=== PATIENT | female | born 1990 | race Caucasian/White ===

== ENCOUNTER → 2017-01-07 | Outpatient (REF) | payer OTHER | LOC: M LAB REF 13:38 | PROVIDERS: ATTEND Advanced Practice Midwife | DX: Z34.82 Encounter for supervision of other normal pregnancy, second trimester (principal); Z3A.23 23 weeks gestation of pregnancy ==

== ENCOUNTER → 2017-04-10 | Outpatient (REF) | payer OTHER | LOC: M LAB REF 12:56 | DX: Z34.83 Encounter for supervision of other normal pregnancy, third trimester (principal); Z3A.36 36 weeks gestation of pregnancy | CPT/HCPCS: 87081 ==

== ENCOUNTER 2017-04-24 00:42 | Inpatient (IN) | payer OTHER ==
[2017-04-24] MEDS: PENICILLIN G POTASSIUM IV 5 MU in D5W MINI-BAG PLUS 100 ML IV (01:57)
[2017-04-24 02:16] LABS: HEMATOCRIT 32.8 % (36.0-47.0); MEAN CORPUSCULAR HEMOGLOBIN 29.8 pg (27.0-33.0); MEAN CORPUSCULAR HGB CONC 33.5 g/dl (32.0-36.5); MEAN CORPUSCULAR VOLUME 88.9 fl (80.0-96.0); PLATELET COUNT, AUTOMATED 280 10^3/uL (150-450); RED BLOOD COUNT 3.69 10^6/uL (4.00-5.40); RED CELL DISTRIBUTION WIDTH 13.2 % (11.5-14.5); WHITE BLOOD COUNT 12.2 10^3/uL (4.0-10.0)
[2017-04-24 02:37] LABS: AMPHETAMINES URINE REFLEX NEGATIVE (NEGATIVE); BARBITURATES URINE REFLEX NEGATIVE (NEGATIVE); BENZODIAZEPINES URINE REFLEX NEGATIVE (NEGATIVE); CANNABINOIDS URINE REFLEX NEGATIVE (NEGATIVE); COCAINE METABOLITE URINE REFLE NEGATIVE (NEGATIVE); METHADONE URINE REFLEX NEGATIVE (NEGATIVE); OPIATES URINE REFLEX NEGATIVE (NEGATIVE); PHENCYCLIDINE URINE REFLEX NEGATIVE (NEGATIVE)
[2017-04-24] MEDS ORDERED: OXYTOCIN 30 UNITS IN 0.9% NaCl 500ML IV BAG (J2590) As Ordered (07:05)
[2017-04-24] MEDS: PENICILLIN G POTASSIUM IV 2.5 MU in APPROPRIATE DILUENT 1 EA IV (07:13)
[2017-04-24] MEDS ORDERED: FENTANYL 2MCG/ML ROPIVACAINE 0.2% IN 0.9% NACL 200ML IVBAG As Ordered (07:23)
[2017-04-24] MEDS ORDERED: ePHEDrine SULFATE 25 MG/5 ML(5MG/ML) SYRINGE IV (08:30)
[2017-04-24] MEDS ORDERED: diphenhydrAMINE INJ 50MG/ML VIAL (J1200) IV (08:30)
[2017-04-24] MEDS ORDERED: FENTANYL/ROPIVACAINE/NACL BAG 200 ML EPIDURAL (08:30)
[2017-04-24] MEDS ORDERED: ONDANSETRON 4MG/2ML VIAL (J2405) IV (08:30)
[2017-04-24] MEDS ORDERED: REFRIGERATOR IV KEYS XX (08:30)
[2017-04-24] MEDS ORDERED: NALOXONE INJ 0.4 MG/1 ML VIAL (J2310) IV (08:30)
[2017-04-24] MEDS ORDERED: LACTATED RINGER'S 1000 ML IV (08:30)
[2017-04-24] MEDS ORDERED: EPIDURAL/PCA KEYS XX (08:30)
[2017-04-24] MEDS ORDERED: EPIDURAL COMMENT XX (08:30)
[2017-04-24] MEDS ORDERED: ePHEDrine INJ 50 MG/ML VIAL IV (09:00)
[2017-04-24] MEDS ORDERED: ANUSOL HC CREAM 30GM TOP (10:30)
[2017-04-24] MEDS ORDERED: METHYLERGONOVINE MALEATE 0.2 MG TAB PO (10:30)
[2017-04-24] MEDS ORDERED: DOCUSATE SODIUM 100 MG CAP PO (10:30)
[2017-04-24] MEDS ORDERED: DIBUCAINE 1% OINTMENT 30GM TOP (10:30)
[2017-04-24] MEDS ORDERED: MEASLES,MUMPS,RUBELLA VACCINE INJ (MMR-II) (90707) SC (10:30)
[2017-04-24] MEDS ORDERED: RHOGAM 300 MCG (1500 IU) INJ (J2790) IM (10:30)
[2017-04-24 11:24] LABS: HBSAG L&D NEGATIVE (NEGATIVE)
[2017-04-24] MEDS: LACTATED RINGER'S 1000 ML IV (12:57)
[2017-04-24] MEDS: OXYTOCIN DRIP 30 UNITS in APPROPRIATE DILUENT 1 EA IV (12:58)
[2017-04-24] MEDS: PRENATAL VITAMINS CHEWABLE TABLET PO (16:15)
[2017-04-24] MEDS: IBUPROFEN 800 MG TAB PO ×2 (17:01→19:23)
[2017-04-24] MEDS: ACETAMINOPHEN 500 MG TAB PO (23:23)
[2017-04-25] MEDS: PRENATAL VITAMINS CHEWABLE TABLET PO (09:17)
[2017-04-25] MEDS: IBUPROFEN 800 MG TAB PO (09:18)
[2017-04-25] MEDS: ADACEL/BOOSTRIX VACCINE (DIPHTH/PERTUSS/ACELL/TETANUS)0.5ML SYR (90715) IM (13:17)
== END 2017-04-25 13:40 | disposition home or self-care (01) | DRG 775 ==
LOC: M LDO 00:42 → M LDI 01:19 → M OBS 12:31
PROVIDERS: Advanced Practice Midwife
PROC: 10E0XZZ Delivery of Products of Conception, External Approach (ICD-10-PCS; principal; 2017-04-24)
PROC: 10907ZC Drainage of Amniotic Fluid, Therapeutic from Products of Conception, Via Natural or Artificial Opening (ICD-10-PCS; 2017-04-24)
DX: O99.824 Streptococcus B carrier state complicating childbirth (principal); Z3A.38 38 weeks gestation of pregnancy; Z37.0 Single live birth

== ENCOUNTER → 2019-03-17 | Outpatient (REF) | payer OTHER ==
[~2019-03-17] MED LIST: COLA100C5 PO; MOTR200T44 PO; PRENTAB9 PO; TYLE325T5 PO
[2019-03-17 13:21] LABS: HEMATOCRIT 36.6 % (36.0-47.0); HEMOGLOBIN 12.3 g/dl (12.0-15.5); MEAN CORPUSCULAR HEMOGLOBIN 30.7 pg (27.0-33.0); MEAN CORPUSCULAR HGB CONC 33.6 g/dl (32.0-36.5); MEAN CORPUSCULAR VOLUME 91.3 fl (80.0-96.0); PLATELET COUNT, AUTOMATED 264 10^3/uL (150-450); RED BLOOD COUNT 4.01 10^6/uL (4.00-5.40); WHITE BLOOD COUNT 5.7 10^3/uL (4.0-10.0)
[2019-03-17 16:05] LABS: HCG, SERUM QUANTITATIVE 4646 MIU/ML
[2019-03-18 12:34] LABS: RUBELLA IgG QUALITATIVE IMMUNE (IMMUNE)
[2019-03-18 13:05] LABS: HEPATITIS C VIRUS ABY INDEX 0.1 INDEX (<0.8); HIV 1&2 SCREEN CENTAUR NEGATIVE (NEGATIVE)
== END ==
LOC: M LAB REF 12:53
PROVIDERS: ATTEND Nurse Practitioner Women's Health
DX: Z32.01 Encounter for pregnancy test, result positive (principal); O36.80X0 Pregnancy with inconclusive fetal viability, not applicable or unspecified; Z3A.00 Weeks of gestation of pregnancy not specified

== ENCOUNTER → 2019-08-19 | Outpatient (CLI) | payer OTHER ==
[2019-08-19 09:40] LABS: HEMATOCRIT 35.8 % (36.0-47.0); MEAN CORPUSCULAR HEMOGLOBIN 31.5 pg (27.0-33.0); MEAN CORPUSCULAR HGB CONC 33.5 g/dl (32.0-36.5); PLATELET COUNT, AUTOMATED 229 10^3/uL (150-450); RED BLOOD COUNT 3.81 10^6/uL (4.00-5.40); WHITE BLOOD COUNT 9.7 10^3/uL (4.0-10.0)
== END ==
LOC: M LAB 08:10
PROVIDERS: ATTEND Obstetrics & Gynecology
DX: Z36.89 Encounter for other specified antenatal screening (principal)

== ENCOUNTER 2019-09-08 14:38 | Emergency (ER) | payer OTHER ==
[~2019-09-08] VITALS: Ht 167.6 cm; Wt 77.9 kg
[2019-09-08 15:53] LABS: BASO % 0.3 % (0.0-1.0); EOS # 0.2 10^3/uL (0.0-0.5); EOS % 1.6 % (0.0-3.0); HEMATOCRIT 32.7 % (36.0-47.0); LYMPH # 1.9 10^3/uL (1.5-5.0); LYMPH % 14.4 % (24.0-44.0); MEAN CORPUSCULAR HEMOGLOBIN 30.7 pg (27.0-33.0); MEAN CORPUSCULAR HGB CONC 33.6 g/dl (32.0-36.5); MEAN CORPUSCULAR VOLUME 91.3 fl (80.0-96.0); MONO # 0.9 10^3/uL (0.0-0.8); MONO % 6.6 % (0.0-5.0); NEUTROPHILS # 9.7 10^3/uL (1.5-8.5); NEUTROPHILS % 75.5 % (36.0-66.0); PLATELET COUNT, AUTOMATED 246 10^3/uL (150-450); RED BLOOD COUNT 3.58 10^6/uL (4.00-5.40); WHITE BLOOD COUNT 12.8 10^3/uL (4.0-10.0)
[2019-09-08 15:54] VITALS: O2SAT 99
[2019-09-08 16:36] LABS: BLOOD UREA NITROGEN 5 MG/DL (7-18); CALCIUM LEVEL 8.6 MG/DL (8.5-10.1); CARBON DIOXIDE LEVEL 26 MEQ/L (21-32); CHLORIDE LEVEL 106 MEQ/L (98-107); CK-MB VALUE MASS 4.7 NG/ML (<3.6); CPK CREATINE PHOSPHOKINASE 377 U/L (26-192); CREATININE FOR GFR 0.52 MG/DL (0.55-1.30); FREE T4 0.93 NG/DL (0.76-1.46); GLOMERULAR FILTRATION RATE > 60.0 (>60); GLUCOSE, FASTING 106 MG/DL (70-100); MB/CK RELATIVE INDEX 1.25 (< OR =4); NT-PRO BNP 39 PG/ML (<125); POTASSIUM SERUM 3.6 MEQ/L (3.5-5.1); SODIUM LEVEL 139 MEQ/L (136-145); TROPONIN I < 0.02 NG/ML (< 0.10)
[2019-09-08] MEDS ORDERED: NS 500 ML IV ONE (16:45)
--- NOTE | 2019-09-08 18:57 | ECGEPIP ---
[facility] - ED Test Date: 2019-09-08 Pat Name: BO LENZ Department: Room: - Gender: Female [employer]: IRON : 1990 Requested By: BERT Purcell Order Number: [id number] Reading MD: Saqib Farah Measurements Intervals [place] Rate: 101 P: 55 AK: 139 QRS: 42 QRSD: 89 T: 30 QT: 322 QTc: 417 Interpretive Statements SINUS TACHYCARDIA POSSIBLE LEFT ATRIAL ENLARGEMENT NO PRIORS FOR COMPARISON Electronically Signed on 09-08-2019 18:57:00 EDT by Saqib Farah
[2019-09-08 20:45] LABS: CK-MB VALUE MASS 3.7 NG/ML (<3.6); CPK CREATINE PHOSPHOKINASE 333 U/L (26-192); MB/CK RELATIVE INDEX 1.11 (< OR =4); TROPONIN I < 0.02 NG/ML (< 0.10)
[2019-09-08 20:53] VITALS: BP 109/69
[2019-09-08] MEDS ORDERED: PEPC1TAB5 PO (20:54)
--- NOTE | 2019-09-09 06:41 | ECGEPIP ---
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
== END 2019-09-08 21:03 | disposition home or self-care (01) ==
LOC: M ED 14:38
DX: O99.613 Diseases of the digestive system complicating pregnancy, third trimester (principal); K21.9 Gastro-esophageal reflux disease without esophagitis; O99.113 Other diseases of the blood and blood-forming organs and certain disorders involving the immune mechanism complicating pregnancy, third trimester; D72.829 Elevated white blood cell count, unspecified; R79.89 Other specified abnormal findings of blood chemistry; Z3A.31 31 weeks gestation of pregnancy